=== PATIENT | female | born 1980 | race Caucasian/White ===

== ENCOUNTER 2016-10-30 00:18 | Emergency (ER) | payer MEDICAID ==
[2016-10-30 02:03] LABS: PLATELET COUNT 363 x10^3mcL (130-400)
[2016-10-30 02:08] LABS: CALCIUM 8.8 mg/dL (8.5-10.1); CARBON DIOXIDE 26.1 mmol/L (21-32); CREATININE SERUM 1.1 mg/dL (0.6-1.0); POTASSIUM SERUM 3.7 mmol/L (3.5-5.1)
[2016-10-30 02:12] LABS: BILIRUBIN TOTAL 0.21 mg/dL (0.20-1.00); TOTAL PROTEIN, SERUM 7.9 g/dL (6.4-8.2)
[2016-10-30 02:27] LABS: UA SPECIFIC GRAVITY 1.015 (1.005-1.035); microscopic required? YES; urine erythrocyte TRACE (NEGATIVE)
[2016-10-30 02:32] LABS: BAND NEUTROPHIL 3 % (0-10); BASOPHIL 0 % (0-2); MONOCYTE 2 % (0-7); SEGMENTED NEUTROPHILS 84 % (37-75)
[2016-10-30 02:33] LABS: rbc morphology (normal/abnorm) ABNORMAL (NORMAL)
[2016-10-30 02:38] LABS: PLATELET MORPHOLOGY PLATELETS NORMAL
[2016-10-30 04:37] VITALS: BP 130/66
== END 2016-10-30 04:37 | disposition home or self-care (01) ==
LOC: ED 00:18
PROVIDERS: Specialist
DX: K80.50 Calculus of bile duct without cholangitis or cholecystitis without obstruction (principal); N39.0 Urinary tract infection, site not specified
CPT/HCPCS: 36415; 83880; Q0092